=== PATIENT | female | born 1995 ===

== ENCOUNTER 2025-04-04 19:40 | Emergency (ER) | payer OTHER, SELFPAY ==
[2025-04-04] VITALS (11 sets, daily range): BP systolic 102–135; BP diastolic 55–80; PULSE 81–100; RESP 17; TEMP 36.9; O2SAT 95–98; BMI 36.6
--- NOTE | 2025-04-04 19:58 | EKG_ITS ---
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
[2025-04-04 20:17] LABS: Add Manual Diff / Slide Review NO; Hematocrit 43.1 % (36-46); Hemoglobin 15.0 g/dL (12.0-16.0); Lymphocytes Absolute Auto 1900 /uL (1100-4500); Mean Corpuscular HGB Conc 34.8 % (30-36); Mean Corpuscular Hemoglobin 30.4 PG (26-34); Mean Corpuscular Volume 87.6 fL (80-100); Platelet Count 280 X10^3/uL (150-400)
[2025-04-04 20:28] LABS: Alanine Aminotransferase 30 IU/L (<35); Albumin 4.6 g/dL (3.5-5.0); Albumin Globulin Ratio 1.5 (1.0-2.8); Alkaline Phosphatase 58 U/L (38-126); Blood Urea Nitrogen 8 mg/dL (7-17); Calcium 9.3 mg/dL (8.4-10.2); Carbon Dioxide 23 mmol/L (22-32); Chloride 107 mmol/L (98-107); Estimated Glomerular Filt Rate > 60 mL/min (>60); Globulin 3.0 g/dL (1.7-4.1); Glucose 94 mg/dL (70-99); HEMOLYSIS < 15 (0-50); Lipase 85 U/L (23-300); Potassium 4.1 mmol/L (3.4-5.1); Sodium 138 mmol/L (137-145); Total Protein 7.6 g/dL (6.3-8.2)
--- NOTE | 2025-04-04 20:36 | DI.CT.S_ITS ---
PROCEDURE: CT ABDOMEN PELVIS WO CON INDICATIONS: Left flank pain, history stones TECHNIQUE: CT of the abdomen and pelvis was obtained without intravenous contrast. Coronal and sagittal reformats were performed. For radiation dose reduction, the following was used: automated exposure control, adjustment of mA and/or kV according to patient size. COMPARISON: None. FINDINGS: Image quality: Diagnostic. Lower Chest: No significant findings. ABDOMEN: Liver: No contour-deforming mass. Calcified granulomas. Gallbladder: Post cholecystectomy Biliary ducts: No biliary dilation. Pancreas: No ductal dilation. Spleen: Size is within normal limits. Calcified granulomas. Adrenal Glands: No adrenal nodules. Kidneys and Ureters: No hydronephrosis. No contour-deforming mass. A 4 mm nonobstructive stone in the right lower pole. Stomach and Bowel: Normal colonic caliber, without significant wall thickening. Normal appendix Peritoneum: No abnormal intraperitoneal fluid. No free air. Ventral Wall: No significant hernia. Abdominal Nodes: No retroperitoneal or mesenteric adenopathy by size criteria. Vessels: Aorta and inferior vena cava are normal in size. PELVIS: Pelvic Organs: Unremarkable. Bladder: Unremarkable. Pelvic Nodes: No enlarged lymph nodes. Miscellaneous: No inguinal hernias are seen. Bones: No aggressive osseous abnormality. IMPRESSION: 1. Nonobstructive right intrarenal 4 mm nephrolithiasis. 2. No acute abnormality in the abdomen or pelvis. Dictated by: Pratik Muñiz M.D. on 04/04/2025 at 21:48 Approved by: Pratik Muñiz M.D. on 04/04/2025 at 21:51
--- NOTE | 2025-04-04 20:40 | ED.ABDPAIN ---
HPI - Abdominal Pain General Chief Complaint: Abdominal Pain Stated Complaint: Kidney stone? R back pn Time Seen by Provider: 04/04/25 19:55 Source: patient Mode of arrival: Ambulatory History of Present Illness HPI narrative: 29-year-old female with history of previous kidney stone, has nontraumatic acute right flank pain, some nausea and vomiting nonbloody, no fevers or chills. No recent cough or shortness of breath. Denies painful or frequent urination. No diarrhea. No recent vaginal bleeding. History of tubal removal sterilization procedure. Related Data Home Medications ?Medication ?Instructions ?Recorded ?Confirmed pantoprazole 40 mg tablet,delayed 40 mg PO DAILY 04/04/25 04/04/25 release spironolactone 50 mg tablet 50 mg PO DAILY 04/04/25 04/04/25 trazodone 50 mg tablet 50 mg PO BEDTIME PRN insomnia 04/04/25 04/04/25 Previous Rx's ?Medication ?Instructions ?Recorded hydrocodone 5 mg-acetaminophen 325 1 tab PO Q6H PRN pain #10 tabs 04/04/25 mg tablet naproxen 500 mg tablet 500 mg PO BID 7 days #14 tabs 04/04/25 Allergies Allergy/AdvReac Type Severity Reaction Status Date / Time latex Allergy Mild Hives Verified 04/04/25 19:47 prednisone Allergy Mild thrush Verified 04/04/25 19:47 Patient History Social History Smoking Status: Former smoker Smoking Status: Former smoker tobacco type: cigarettes Exam Narrative Exam Narrative: GENERAL: Well-developed patient, in mild distress. HEAD: Atraumatic. Normocephalic. EYES: Pupils equal round and reactive. Extraocular motions intact. No scleral icterus. No injection or drainage. ENT: Nose without bleeding, purulent drainage. Throat without erythema, tonsillar hypertrophy or exudate. Airway patent. NECK: Trachea midline. Non tender CARDIOVASCULAR: Regular rate and rhythm without murmurs, gallops, or rubs. RESPIRATORY: Clear to auscultation. Breath sounds equal bilaterally. No wheezes, rales, or rhonchi. GASTROINTESTINAL: Abdomen soft, non-tender, nondistended. EXTREMITIES: No edema or joint tenderness. BACK: Nontender without deformity or crepitance. No flank tenderness. NEURO: AOx3. Motor functions grossly nonfocal. SKIN: No rash or erythema of visible areas Initial Vital Signs Initial Vital Signs: Vital Signs Temperature 98.5 F 04/04/25 19:48 Pulse Rate 100 H 04/04/25 19:48 Respiratory Rate 17 04/04/25 19:48 Blood Pressure 135/70 04/04/25 19:48 Pulse Oximetry 98 04/04/25 19:48 Oxygen Delivery Method Room Air 04/04/25 19:48 Course Orders Ordered: ED Orders 04/04/25 19:58 EKG-12 Lead Stat 04/04/25 20:07 Complete Blood Count AUTO DIFF Stat Comprehensive Metabolic Panel Stat Lipase Stat 04/04/25 20:12 Urine Culture Stat Urine Microscopic Stat 04/04/25 20:36 CT abdomen pelvis wo con Stat 04/04/25 23:05 US pelvic complete Stat Discontinued Medications Hydrocodone Bitart/Acetaminophen (Hydrocodone/Acet 5/325 Prepack) 1 bottle MISC DIRECTED ONE Stop: 04/04/25 22:24 Last Admin: 04/04/25 22:35 Dose: 1 bottle Documented By: ROBERT Hydrocodone Bitart/Acetaminophen (Hydrocodone/Acet 5/325 Tablet) 1 tab PO NOW ONE Stop: 04/04/25 22:25 Last Admin: 04/04/25 22:45 Dose: 1 tab Documented By: ROBERT Hydrocodone Bitart/Acetaminophen (Hydrocodone/Acet 5/325 Prepack) 1 bottle MISC DIRECTED ONE Stop: 04/05/25 00:36 Last Admin: 04/05/25 00:44 Dose: 1 bottle Documented By: Hydromorphone HCl (Hydromorphone Hcl 0.5 Mg/0.5 Ml Syringe) 0.5 mg IV NOW ONE Stop: 04/04/25 20:41 Last Admin: 04/04/25 20:52 Dose: 0.5 mg Documented By: ROBERT Hydromorphone HCl (Hydromorphone Hcl 0.5 Mg/0.5 Ml Syringe) 0.5 mg IV NOW ONE Stop: 04/04/25 22:26 Last Admin: 04/04/25 22:33 Dose: 0.5 mg Documented By: ROBERT Ketorolac Tromethamine (Ketorolac 30 Mg/Ml Vial) 15 mg IV NOW ONE Stop: 04/04/25 20:41 Last Admin: 04/04/25 20:52 Dose: 15 mg Documented By: ROBERT Ondansetron HCl (Ondansetron 4 Mg/2 Ml Inj) 4 mg IV NOW PRN PRN Reason: Nausea And Vomiting Ondansetron HCl (Ondansetron 4 Mg Odt) 4 mg PO NOW PRN PRN Reason: Nausea And Vomiting Ondansetron HCl (Ondansetron 4 Mg/2 Ml Inj) 4 mg IV NOW ONE Stop: 04/04/25 20:41 Last Admin: 04/04/25 20:52 Dose: 4 mg Documented By: ROBERT Ondansetron HCl (Ondansetron 4 Mg Odt Prepack) 1 bottle MISC DIRECTED ONE Stop: 04/04/25 22:25 Last Admin: 04/04/25 22:43 Dose: 1 bottle Documented By: ROBERT Ondansetron HCl (Ondansetron 4 Mg Odt Prepack) 1 bottle MISC DIRECTED ONE Stop: 04/05/25 00:36 Last Admin: 04/05/25 00:44 Dose: 1 bottle Documented By: Tamsulosin HCl (Tamsulosin 0.4 Mg Capsule) 0.4 mg PO NOW ONE Stop: 04/04/25 22:24 Last Admin: 04/04/25 22:35 Dose: 0.4 mg Documented By: ROBERT Vital Signs Vital signs: Vital Signs - 8 hr 04/04/25 19:48 04/04/25 20:49 04/04/25 21:00 Temperature 98.5 F Pulse Rate 100 H 94 H 88 Respiratory Rate 17 Blood Pressure 135/70 Pulse Oximetry 98 97 95 Oxygen Delivery Method Room Air 04/04/25 21:02 04/04/25 21:02 04/04/25 21:30 Temperature Pulse Rate 85 81 Respiratory Rate Blood Pressure 126/70 Pulse Oximetry 95 97 Oxygen Delivery Method 04/04/25 21:31 04/04/25 21:31 04/04/25 22:00 Temperature Pulse Rate 88 87 Respiratory Rate Blood Pressure 102/59 L Pulse Oximetry 97 97 Oxygen Delivery Method 04/04/25 22:00 04/04/25 22:30 04/04/25 22:30 Temperature Pulse Rate 82 Respiratory Rate Blood Pressure 113/68 120/80 Pulse Oximetry 98 Oxygen Delivery Method 04/04/25 23:00 04/04/25 23:00 04/04/25 23:32 Temperature Pulse Rate 98 H Respiratory Rate Blood Pressure 113/55 L Pulse Oximetry 97 98 Oxygen Delivery Method Room Air 04/04/25 23:52 04/04/25 23:52 04/05/25 00:00 Temperature Pulse Rate 84 77 Respiratory Rate Blood Pressure 128/60 Pulse Oximetry 97 97 Oxygen Delivery Method Room Air 04/05/25 00:00 04/05/25 00:30 04/05/25 00:30 Temperature Pulse Rate 86 Respiratory Rate Blood Pressure 110/56 L 104/68 Pulse Oximetry 96 Oxygen Delivery Method Room Air MDM - Abdominal Pain Lab Data Attestation: I reviewed the patient's lab results. Lab results narrative: White blood cell count 81361, hemoglobin 15, platelets adequate. Glucose 94. Normal renal function, serum CO2, electrolytes. Liver functions and lipase normal. Urine dip negative. Urine test negative. 04/04/25 20:07 04/04/25 20:07 Labs: Lab Results 04/04/25 04/04/25 Range/Units 20:07 20:12 WBC 10.9 (4.5-11.0) X10^3/uL RBC 4.92 (4.0-5.2) X10^6/uL Hgb 15.0 (12.0-16.0) g/dL Hct 43.1 (36-46) % MCV 87.6 (80-100) fL MCH 30.4 (26-34) PG MCHC 34.8 (30-36) % RDW 12.7 (11.6-14.8) % Plt Count 280 (150-400) X10^3/uL Neut % (Auto) 76.9 H (50-75) % Lymph % (Auto) 17.0 L (25-40) % [place] % (Auto) 4.2 (3-14) % Eos % (Auto) 1.3 L (2-4) % Baso % (Auto) 0.6 (0-2) % Neut # (Auto) 8400 H (9357-1860) /uL Lymph # (Auto) 1900 (8536-2718) /uL [place] # (Auto) 500 (0-900) /uL Eos # (Auto) 100 (0-450) /uL Baso # (Auto) 100 (0-100) /uL Sodium 138 (137-145) mmol/L Potassium 4.1 (3.4-5.1) mmol/L Chloride 107 (98-107) mmol/L Carbon Dioxide 23 (22-32) mmol/L BUN 8 (7-17) mg/dL Creatinine 0.71 (0.52-1.04) mg/dL Estimated GFR > 60 (>60) mL/min BUN/Creatinine Ratio 11.3 (6-22) Glucose 94 (70-99) mg/dL Calcium 9.3 (8.4-10.2) mg/dL Total Bilirubin 0.2 (0.2-1.3) mg/dL AST 25 (14-36) IU/L ALT 30 (<35) IU/L Alkaline Phosphatase 58 (38-126) U/L Total Protein 7.6 (6.3-8.2) g/dL Albumin 4.6 (3.5-5.0) g/dL Globulin 3.0 (1.7-4.1) g/dL Albumin/Globulin Ratio 1.5 (1.0-2.8) Lipase 85 (23-300) U/L Urine RBC None seen (0-5/HPF) Urine WBC 1-5/hpf (0-5/HPF) Ur Squamous Epith Cells 5-10 /hpf H (0-5/HPF) Urine Bacteria Few (2-10) H (None) Ur Culture Indicated? TNP Vol Urine Centrifuged 10ml (spun) Point of care testing: Point of Care Testing Test Results Negative Urine Dip Bedside Urine Glucose Negative Bedside Urine Bilirubin - Negative Bedside Urine Ketone - Negative Urine Specific [place] 1.010 Bedside Urine Occult Blood - Negative Bedside Urine pH 8.5 Bedside Urine Protein + 30 Bedside Urine Urobilinogen - Negative Bedside Urine Nitrite - Negative Bedside Urine Leukocytes - Negative Esterase Imaging Data CT scan - abdomen/pelvis: Radiologist's Impression: [address] [address] [address] Scan Report Signed Patient: Panda Hunter MR#: [id number] : 1995 Acct:[id number] Age/Sex: 29 / F Date of Service: 04/04/25 Loc: ED Accession Number: [id number] Procedure: CT abdomen pelvis wo con Ordering Provider: Masood Hu MD PROCEDURE: CT ABDOMEN PELVIS WO CON INDICATIONS: Left flank pain, history stones TECHNIQUE: CT of the abdomen and pelvis was obtained without intravenous contrast. Coronal and sagittal reformats were performed. For radiation dose reduction, the following was used: automated exposure control, adjustment of mA and/or kV according to patient size. COMPARISON: None. FINDINGS: Image quality: Diagnostic. Lower Chest: No significant findings. ABDOMEN: Liver: No contour-deforming mass. Calcified granulomas. Gallbladder: Post cholecystectomy Biliary ducts: No biliary dilation. Pancreas: No ductal dilation. Spleen: Size is within normal limits. Calcified granulomas. Adrenal Glands: No adrenal nodules. Kidneys and Ureters: No hydronephrosis. No contour-deforming mass. A 4 mm nonobstructive stone in the right lower pole. Stomach and Bowel: Normal colonic caliber, without significant wall thickening. Normal appendix Peritoneum: No abnormal intraperitoneal fluid. No free air. Ventral Wall: No significant hernia. Abdominal Nodes: No retroperitoneal or mesenteric adenopathy by size criteria. Vessels: Aorta and inferior vena cava are normal in size. PELVIS: Pelvic Organs: Unremarkable. Bladder: Unremarkable. Pelvic Nodes: No enlarged lymph nodes. Miscellaneous: No inguinal hernias are seen. Bones: No aggressive osseous abnormality. IMPRESSION: 1. Nonobstructive right intrarenal 4 mm nephrolithiasis. 2. No acute abnormality in the abdomen or pelvis. Dictated by: Pratik Muñiz M.D. on 04/04/2025 at 21:48 Approved by: Pratik Muñiz M.D. on 04/04/2025 at 21:51 Ultrasound pelvis: Radiologist's Impression: [place] [address] Ultrasound Report Signed Patient: Panda Hunter MR#: [id number] : 1995 Acct:[id number] Age/Sex: 29 / F Date of Service: 04/04/25 Loc: ED Accession Number: [id number] Procedure: US pelvic complete Ordering Provider: Masood Hu MD PROCEDURE: US PELVIC COMPLETE INDICATIONS: right flank pain TECHNIQUE: Real-time scanning was performed of the pelvic organs, with image documentation. Additional endovaginal scanning was necessary due to incomplete visualization of the adnexal and endometrial structures by transabdominal scanning. Spectral Doppler was performed of the bilateral ovaries COMPARISON: [facility], CT, CT ABDOMEN PELVIS WO CON, 04/04/2025, 20:57. FINDINGS: Uterus: Uterus is anteverted and normal in size at 7.4 x 3.7 x 4.4 cm. The myometrium is homogeneous. The endometrium measures 7 mm combined thickness. Ovaries: The right ovary measures 3.5 x 1.6 x 3 cm, with a calculated ovarian volume of 9 cc. The left ovary measures 2.8 x 1.4 x 1.8 cm, with a calculated ovarian volume of 4 cc. The ovaries have a normal sonographic appearance. Less than 12 follicles can be seen in each ovary. No adnexal masses are seen. Normal follicle in the right ovary normal arterial Doppler interrogation of both ovaries. Other: No pathologic free abdominal or pelvic fluid. IMPRESSION: Unremarkable pelvic ultrasound. We strive to produce accurate, complete, and clear reports of imaging services. To assist us in improving patient care, this report was composed using standard report templates and voice recognition software. Therefore, it may contain abnormal punctuation, insertions and/or omissions. Occasional wrong-word or sound-alike substitutions may occur. Though we review the report and make efforts to correct it, we do recommend that the report be read carefully in proper context to recognize any text inaccuracies. Dictated by: Pratik Muñiz M.D. on 04/05/2025 at 0:20 Approved by: Pratik Muñiz M.D. on 04/05/2025 at 0:22 ECG Data Attestation: I personally reviewed and interpreted this ECG as follows: Interpretation: 2128, normal sinus rhythm with rate of 82, no obvious ST segment elevation or depression changes. AK 152, QRS 70, QTC 429. [facility] Narrative Medical decision making narrative: 29-year-old female with nontraumatic right flank pain, history of kidney stones, feels somewhat similar, with unrelenting increasing pain. Afebrile, sirs screen negative. No tenderness CVA or back or anterior abdominal. Urine dip negative for blood. Urine hCG negative. Serum studies pending. CT abdomen and pelvis ordered. IV Dilaudid/Zofran, IV Toradol. DDx right flank pain consider right ureteral stone, UTI, pyelonephritis, colitis, diverticulitis, appendicitis, biliary colic, duodenal ulcer, musculoskeletal, ovarian cyst, PID, ovarian torsion, other. Lab data: White blood cell count 84005, hemoglobin 15, platelets adequate. Glucose 94. Normal renal function, serum CO2, electrolytes. Liver functions and lipase normal. Urine dip negative. Urine test negative. CT abdomen and pelvis showed no acute changes, nonobstructing right kidney stones noted. See radiology report. Unclear if kidney stone was cause of current right sided pain, as stones are nonobstructing. We discussed ultrasound pelvis, she would like to pursue this. Ultrasound pelvis showed no acute changes, see radiology report. Trial of pain medication and close follow up. It is possible the stones maybe intermittently ball-valve obstructing, but unclear if this is the cause of flank pain. No acute process otherwise identified with CT/ultrasound imaging of the abdomen and pelvis at this time. Consider urology follow up. Contact information given for local urology clinic. Discharged home. Return precautions discussed. Discharge Plan Departure Patient Disposition: Home Clinical Impression: Acute right flank pain, Right kidney stone Instructions: DI for Kidney Stones Activity Restrictions/Additional Instructions: Right nontraumatic flank pain. History of kidney stones. No fever. Urinalysis not convincing for any infection, nor had any significant blood. test negative. CT scanning showed right-sided kidney stones, but not necessarily blocking the kidney, nor any in the ureter identified. Unclear if the kidney stones or actually causing the flank pain at this time. Ultrasound pelvis additionally performed, no acute process identified on pelvic ultrasound imaging to account for symptoms. On CT scan of the abdomen and pelvis there was no mention of any appendicitis or colitis or other cause of the discomfort. It is possible you could have musculoskeletal pain. Right flank pain might be related to your kidney stone if this is ball valve intermittently obstructing the kidney Consider pain medication and follow up with local urology. Urologist office contact information provided. Return earlier to this/nearest emergency department for any change worsening symptoms or any concerns prior. Prescriptions: New hydrocodone-acetaminophen 5-325 mg tablet 1 tab PO Q6H PRN (Reason: pain) Qty: 10 0RF naproxen 500 mg tablet 500 mg PO BID 7 Days Qty: 14 0RF No Action pantoprazole 40 mg tablet,delayed release (DR/EC) 40 mg PO DAILY spironolactone 50 mg tablet 50 mg PO DAILY trazodone 50 mg tablet 50 mg PO BEDTIME PRN (Reason: insomnia) Referrals: Jersey Rodriguez DO [Physician, Urology] Stand Alone Forms: Patient Portal/API
[2025-04-04] MEDS: ONDANSETRON 4 MG/2 ML INJ IV (20:52)
[2025-04-04] MEDS: KETOROLAC 30 MG/ML VIAL 15 MG IV (20:52)
[2025-04-04] MEDS: TAMSULOSIN 0.4 MG CAPSULE PO (22:35)
[2025-04-04] MEDS: ONDANSETRON 4 MG ODT PREPACK 1 BOTTLE MISC (22:43)
--- NOTE | 2025-04-04 23:05 | DI.US.S_ITS ---
PROCEDURE: US PELVIC COMPLETE INDICATIONS: right flank pain TECHNIQUE: Real-time scanning was performed of the pelvic organs, with image documentation. Additional endovaginal scanning was necessary due to incomplete visualization of the adnexal and endometrial structures by transabdominal scanning. Spectral Doppler was performed of the bilateral ovaries COMPARISON: [facility], CT, CT ABDOMEN PELVIS WO CON, 04/04/2025, 20:57. FINDINGS: Uterus: Uterus is anteverted and normal in size at 7.4 x 3.7 x 4.4 cm. The myometrium is homogeneous. The endometrium measures 7 mm combined thickness. Ovaries: The right ovary measures 3.5 x 1.6 x 3 cm, with a calculated ovarian volume of 9 cc. The left ovary measures 2.8 x 1.4 x 1.8 cm, with a calculated ovarian volume of 4 cc. The ovaries have a normal sonographic appearance. Less than 12 follicles can be seen in each ovary. No adnexal masses are seen. Normal follicle in the right ovary normal arterial Doppler interrogation of both ovaries. Other: No pathologic free abdominal or pelvic fluid. IMPRESSION: Unremarkable pelvic ultrasound. We strive to produce accurate, complete, and clear reports of imaging services. To assist us in improving patient care, this report was composed using standard report templates and voice recognition software. Therefore, it may contain abnormal punctuation, insertions and/or omissions. Occasional wrong-word or sound-alike substitutions may occur. Though we review the report and make efforts to correct it, we do recommend that the report be read carefully in proper context to recognize any text inaccuracies. Dictated by: Pratik Muñiz M.D. on 04/05/2025 at 0:20 Approved by: Pratik Muñiz M.D. on 04/05/2025 at 0:22
[2025-04-05] VITALS: BP 110/56; PULSE 77; O2SAT 97
--- NOTE | 2025-04-05 00:02 | PC.NURSE ---
New diagnosis of Kidney stone none obstructing, waiting on US results.
[2025-04-05 00:30] VITALS: BP 104/68; PULSE 86; O2SAT 96
[2025-04-05] MEDS: ONDANSETRON 4 MG ODT PREPACK 1 BOTTLE MISC (00:44)
== END 2025-04-05 00:45 | disposition home or self-care (01) ==
PROVIDERS: Emergency Provider Emergency Medicine
DX: N20.0 Calculus of kidney (principal); R10.A1 Flank pain, right side; R11.2 Nausea with vomiting, unspecified; Z87.442 Personal history of urinary calculi
CPT/HCPCS: 36415; 74176; 76830; 76856; 80053; 81003; 81015; 81025; 83690; 85025; 87086; 93005; 93975; 96374; 96375; 96376; 99284; J1171; J1885; J2405